=== PATIENT | male | born 1995 | race Caucasian/White ===

== ENCOUNTER → 2017-01-21 | Outpatient (CLI) | payer OTHER ==
--- NOTE | 2017-01-21 20:31 | MR ---
EXAMINATION TYPE: MR brain wo con DATE OF EXAM: 01/21/2017 COMPARISON: NONE HISTORY: Memory loss, insomnia T1-weighted sagittal, T2, FLAIR, and diffusion axial, and T2 coronal coronal views of the brain are s ubmitted. There is no evidence of acute ischemia. The ventricles, basal cisterns, and sulci overlying the conv exities are consistent with the patient's age. There is no mass effect. Craniocervical junction maintained. Sella turcica has a normal appearance. No cerebellopontine angle mass. Changes of chronic sinusitis noted. Prominent posterior fossa cyst me asuring 1.4 x 1.7 cm. IMPRESSION: 1. No acute intracranial process. 2. Mild chronic sinusitis. 3. There is a prominent posterior fossa cyst. Differential diagnosis includes prominent cisterna magn a versus small arachnoid cyst measures approximately 1.4 x 1.7 cm.
== END | disposition home or self-care (01) ==
LOC: RADMRIMAIN 18:31
PROVIDERS: ATTEND Psychiatry & Neurology Neurology
DX: G93.0 Cerebral cysts (principal); R41.3 Other amnesia
CPT/HCPCS: 70551